=== PATIENT | female | born 1965 | race Caucasian/White ===

== ENCOUNTER 2017-11-01 05:25 | Day surgery (SDC) | payer OTHER ==
[~2017-11-01 05:25] MED LIST: ATENOLOL25 MG PO; ENTOCORT EC3 MG PO; FORTAMET500 MG PO; GLUCOVANCE 2.5/1 TA1 PO; GLUCOVANCE 5-51 EACH PO; KLOR-CON 88 MEQ PO; PROTONIX40 MG PO; SYNTHROID125 MCG PO; TENORETIC 100 T1 TAB PO; TURMERIC500 MG PO; ZANTAC300 MG PO
== END 2017-11-01 13:05 | disposition home or self-care (01) ==
LOC: CIR.AMB 05:25
DX: K60.3 Anal fistula (principal); K50.113 Crohn's disease of large intestine with fistula; K64.0 First degree hemorrhoids

== ENCOUNTER 2023-09-15 11:55 | Emergency (ER) | payer OTHER ==
[~2023-09-15] VITALS: Ht 162.6 cm; Wt 163.3 kg
[2023-09-15] MEDS ORDERED: COZAAR50 MG PO (12:08)
[2023-09-15] MEDS ORDERED: LANTUS SOL100 UNIT/1 SQ (12:13)
[2023-09-15] MEDS ORDERED: JANUVIA50 MG PO (12:14)
[2023-09-15] MEDS ORDERED: 0.9 % SODIUM CHLORIDE 1,000 ML IV STA (14:22)
[2023-09-15] MEDS ORDERED: MEPERIDINE HCL/PF 50 MG/ML VIAL IM STA (14:23)
[2023-09-15 15:12] LABS: HEMATOCRIT 38.7 % (36.0-45.00); HEMOGLOBIN 12.5 g/dL (12.0-15.00); MEAN CELL VOLUME 85.3 fL (80.00-100.00); MEAN CORPUSCULAR HEMOGLOBIN 27.5 pg (27.00-32.0); MEAN CORPUSCULAR HGB CONC 32.3 g/dl (32.0-36.0); PLATELET COUNT 203 K/uL (150-450); RED BLOOD COUNT 4.54 M/uL (4.00-6.00); RED CELL DISTRIBUTION WIDTH 14.3 % (11.5-14.5)
[2023-09-15 15:18] LABS: URINE APPEARANCE Clear; URINE BILIRRUBIN Negative (NEGATIVE); URINE BLOOD Trace; URINE COLOR Yellow; URINE LEUKOCYTE Small; URINE NITRATE Negative; URINE PROTEIN Trace (NEGATIVE); URINE UROBILINOGEN 0.2 E.U./dl
[2023-09-15 15:19] LABS: URINE BACTERIA 95.7 uL (0.0-1933); URINE EPITHELIAL CELLS 3.8 uL (0.0-38.8); URINE RBC 6.1 uL (0.0-20.8); URINE WBC 37.3 uL (0.0-23.2)
[2023-09-15 15:20] LABS: URINE GLUCOSE 500 MG/DL (NEGATIVE)
[2023-09-15 15:35] LABS: INR 1.04; PARTIAL THROMBOPLASTIN TIME 33.3 SECONDS (22.0-34.0); PROTHROMBIN TIME 10.9 SECONDS (9.0-11.5)
[2023-09-15 15:40] LABS: BILIRUBIN TOTAL 0.56 mg/dL (0.3-1.2); BILIRUBIN,CONJUGATED 0.22 mg/dL (0.0-0.2); BILIRUBIN,UNCONJUGATED 0.34 mg/dL (0.0-0.6); CALCIUM 9.4 mg/dL (8.5-10.1); CREATININE SERUM 1.12 mg/dL (0.55-1.02); GFR 50.32; POTASSIUM 3.88 mEq/L (3.5-5.1); TOTAL PROTEIN 7.7 gm/dL (6.4-8.2)
[2023-09-15] MEDS ORDERED: ONDANSETRON HCL 2 MG/ML VIAL IV STA (16:40)
[2023-09-15] MEDS ORDERED: METHYLPREDNISOLONE SOD SUCC 40 MG VIAL IV ONE (17:30)
[2023-09-15] MEDS ORDERED: DIPHENHYDRAMINE HCL 50 MG/ML VIAL 1ML IV ONE (17:30)
[2023-09-15] MEDS ORDERED: INSULIN REGULAR, HUMAN 1,000 UNIT/10 ML UNITS IV ONE (22:15)
== END 2023-09-15 22:47 | disposition home or self-care (01) ==
LOC: ER 11:55
PROVIDERS: General Practice
DX: R10.9 Unspecified abdominal pain (principal); I10 Essential (primary) hypertension; E03.8 Other specified hypothyroidism; E11.9 Type 2 diabetes mellitus without complications; Z79.84 Long term (current) use of oral hypoglycemic drugs; Z88.8 Allergy status to other drugs, medicaments and biological substances
CPT/HCPCS: 36415; 74177; 93005; Q9965